=== PATIENT | male | born 1985 | race Caucasian/White ===

== ENCOUNTER 2020-09-29 19:47 | Emergency (ER) | payer OTHER, SELFPAY ==
[2020-09-29 19:56] VITALS: BP 130/81; PULSE 110; RESP 14; TEMP 36.2; O2SAT 100; BMI 36.1
--- NOTE | 2020-09-30 14:57 | ED.RECABL ---
HPI - Recheck/Abnormal Lab/Rx <Jose E Acevedo PA-C - Last Filed: 09/30/20 15:00> General Chief Complaint: Recheck/Abnormal Lab/Rx Stated Complaint: Anxiety, Needs Med Refill Time Seen by Provider: 09/29/20 20:04 Source: patient Mode of arrival: Ambulatory History of Present Illness HPI narrative: Foster presents today with chief complaint of requesting a refill of his medication. He takes clonazepam 0.25 mg daily for his generalized anxiety. He called his primary care provider yesterday and let them know that he was needing refill. He has not gotten any information back from his PCP's office despite leaving multiple voice mails. He reports that he has not taken his medication more frequently than prescribed. He denies any significant worsening of his symptoms. He has no other acute concerns or complaints at this time. Related Data Home Medications Medication Instructions Recorded Confirmed clonazepam 0.5 mg tablet 0.25 mg PO DAILY 09/29/20 09/29/20 Previous Rx's Medication Instructions Recorded clonazepam 0.5 mg tablet 0.25 mg PO DAILY #15 tab 09/29/20 Allergies Allergy/AdvReac Type Severity Reaction Status Date / Time No Known Drug Allergies Allergy Verified 09/29/20 19:56 Review of Systems <Jose E Acevedo PA-C - Last Filed: 09/30/20 15:00> Review of Systems Narrative: As per HPI Patient History <Jose E Acevedo PA-C - Last Filed: 09/30/20 15:00> Social History Smoking Status: Unknown if ever smoked Smoking Status: Unknown if ever smoked alcohol intake frequency: holidays/special occasions only Substance Use Type: does not use Exam <Jose E Acevedo PA-C - Last Filed: 09/30/20 15:00> Narrative Exam Narrative: Exam Narrative: Const General: cooperative, healthy appearing, comfortable, no acute distress, well developed and well groomed Nutritional Appearance: Elevated BMI Orientation: alert and oriented x3 HENMT Head: normal to inspection and atraumatic Ears: hearing grossly normal bilaterally Nose: external nose normal and nares normal Face and sinus: normal facial exam Neck Neck: normal visual inspection and supple Resp Effort & Inspection: normal respiratory effort, able to speak in complete sentences, no audible wheezes, not labored, no nasal flaring and no respiratory distress Neuro General: alert, oriented x3, gait normal, tone normal and moves all extremities Cognition: normal cognition Speech: speech normal Gait: normal gait Psych Appearance: grossly normal and well kempt Mental Status: mental status grossly normal Speech and Movement: speech and movement normal Mood: congruent mood Affect: normal affect Initial Vital Signs Initial Vital Signs: Vital Signs Temperature 97.2 F L 09/29/20 19:56 Pulse Rate 110 H 09/29/20 19:56 Respiratory Rate 14 09/29/20 19:56 Blood Pressure 130/81 09/29/20 19:56 Pulse Oximetry 100 09/29/20 19:56 <Sandra Schuler DO - Last Filed: 10/01/20 03:32> Initial Vital Signs Initial Vital Signs: Vital Signs Temperature 97.2 F L 09/29/20 19:56 Pulse Rate 110 H 09/29/20 19:56 Respiratory Rate 14 09/29/20 19:56 Blood Pressure 130/81 09/29/20 19:56 Pulse Oximetry 100 09/29/20 19:56 MDM - Recheck/Abnormal Lab/Rx <Jose E Acevedo PA-C - Last Filed: 09/30/20 15:00> MDM Narrative Medical decision making narrative: Patient appears well at this time. We will do a refill of his medications and have him follow up with his PCP. Discharge Plan Departure Patient Disposition: Home Clinical Impression: Encounter for medication refill, Anxiety Prescriptions: New clonazepam 0.5 mg tablet 0.25 mg PO DAILY Qty: 15 RF: 0 No Action clonazepam 0.5 mg tablet 0.25 mg PO DAILY RF: 0 Referrals: Ignacio Leal DO [Primary Care Provider] -
== END 2020-09-29 20:11 | disposition home or self-care (01) ==
PROVIDERS: Emergency Provider Physician Assistant; PCP General Practice
DX: Z76.0 Encounter for issue of repeat prescription (principal); F41.9 Anxiety disorder, unspecified
CPT/HCPCS: 99281

== ENCOUNTER → 2020-11-28 12:28 | Outpatient (CLI) | payer OTHER, SELFPAY ==
[2020-11-28 13:43] LABS: COVID19 -Nasal RAPID Negative (Negative)
== END ==
PROVIDERS: PCP General Practice; Visit Provider Nurse Practitioner Family
DX: Z20.822 Contact with and (suspected) exposure to COVID-19 (principal)
CPT/HCPCS: 87635